=== PATIENT | male | born 1945 | race Caucasian/White ===

== ENCOUNTER 2017-12-12 11:02 | Day surgery (SDC) | payer OTHER ==
[2017-12-11 09:34] VITALS: BMI 37.5
[~2017-12-12 11:02] MED LIST: LACTATED RINGERS 1,000 ML IV SCH; LIDOCAINE 1% 20 ML VIAL (10MG/ML) FOR IV START INTRADERMA PRN; MIDAZOLAM 2 MG/2 ML VIAL IV PRN
[2017-12-12 11:56] VITALS: TEMP 98.4
[2017-12-12] MEDS ORDERED: PROPOFOL 10 MG/ML 20 ML VIAL IV ONE (12:27)
[2017-12-12] MEDS ORDERED: LIDOCAINE 1% INJ 10MG/ML (20 ML MDV) ONE (12:27)
[2017-12-12 13:03] VITALS: RESP 18
--- NOTE | 2017-12-12 13:20 | P.PCN ---
Date of Procedure: 12/12/17 Procedure(s) Performed: Procedure: Colonoscopy and biopsy and polypectomy. Preoperative diagnosis: Hemoccult-positive stools. Postoperative diagnosis: 1. Multiple polyps of various sizes in different areas of the colon, few biopsied and snared. 2. Sigmoid diverticulosis with no evidence of acute diverticulitis or strictures. Preparation: HalfLytely prep. Sedation: Was provided by anesthesia. Brief clinical history: The patient is a 72-year-old male who is scheduled for this evaluation because of finding of Hemoccult positive stools. He denies any overt bleeding or any significant bowel symptoms or change in bowel habits. This would be his first colonoscopy. There is no family history of colon cancer. Procedure: With the patient on his left lateral decubitus position and after informed consent and adequate sedation, the perianal area was inspected and it did not show any fissures or fistulas. There were no masses felt on digital rectal examination. The Olympus CFQ 160L video colonoscope was then inserted in the rectum in the usual fashion and advanced to the cecum. The preparation was less than ideal, however, I was able to observe the most important findings. There was multiple diverticular orifices seen scattered in the sigmoid with no evidence of acute diverticulitis or strictures. In the proximal right colon there was a fleshy flat polypoid area that runs longitudinally and occupies almost half of the circumference of the colon. I obtained multiple biopsies to assess its nature and plan future intervention or follow-up. In the sigmoid, around 45 cm from the anal verge, there was a pedunculated polyp measuring around 2-2.5 cm which I snared and retrieved by suctioning it to the tip of the endoscope and withdrawning the endoscope. There was another flat fleshy polypoid lesion in the distal sigmoid close to the rectosigmoid junction that I decided to obtain biopsies from rather than remove it by piecemeal at this time not knowing its nature and the extent of its attachment to the bowel wall in that area. In addition, there were multiple polyps in the right colon and in the sigmoid, several were small and few medium size which are amenable to polypectomy under more optimal preparation in the future. I retroflexed the endoscope in the rectum before the endoscope was withdrawn. There was no evidence of bleeding in all areas examined. The patient tolerated the procedure well. Plan: I shared with the patient the findings on this exam. Based on the pathology results I will plan next steps regarding the right colon and the distal sigmoid flat, fleshy polypoid areas and the remainder small and medium- sized polyps. I will keep you updated on the progress.
[2017-12-12 13:21] VITALS: BP 167/76; PULSE 65
== END 2017-12-12 13:57 | disposition home or self-care (01) ==
LOC: ORWHC2ENDO 11:02
DX: D12.2 Benign neoplasm of ascending colon (principal); D12.5 Benign neoplasm of sigmoid colon; K57.30 Diverticulosis of large intestine without perforation or abscess without bleeding; J44.9 Chronic obstructive pulmonary disease, unspecified; Z87.891 Personal history of nicotine dependence; Z79.1 Long term (current) use of non-steroidal anti-inflammatories (NSAID); Z79.51 Long term (current) use of inhaled steroids; Z79.899 Other long term (current) drug therapy
CPT/HCPCS: 88305; 45380; 45385; J2001; J2704

== ENCOUNTER 2018-05-21 07:59 | Day surgery (SDC) | payer OTHER ==
[2018-05-16 14:26] VITALS: BMI 36.8
[~2018-05-21 07:59] MED LIST changes: +DEXAMETHASONE SOD PHOSPHATE 10 MG/ML 1 ML VIAL IV ONE; +HYDROmorphone 0.5 MG/0.5 ML SYRINGE IVP PRN; +MIDAZOLAM (PF) 2 MG/2 ML VIAL IV PRN; -MIDAZOLAM 2 MG/2 ML VIAL IV PRN; +MOXIFLOXACIN HCL 0.5% DROPS 3 ML BTL OP ONE; +ONDANSETRON 4 MG/2 ML VIAL IVP ONE; +SCOPOLAMINE 1.5MG/72HR PATCH TRANSDERM ONE; +TETRACAINE 0.5% OPHTH (PF) DROPS 4 ML BTL OP ONE; +TIMOLOL 0.5% OPHTH DROPS 5 ML BTL OP ONE
[2018-05-21] MEDS: PHENYLEPHRINE 2.5% OPHTH DRP 2ML OP NR ×3 (08:15→08:27)
[2018-05-21 08:18] VITALS: RESP 18; TEMP 97.8
[2018-05-21] MEDS: CYCLOPENTOLATE 1% OPHTH SOLN 2 ML BTL OP ONE ×3 (08:18→08:30)
[2018-05-21] MEDS ORDERED: MIDAZOLAM 2 MG/2 ML VIAL ONE (09:01)
[2018-05-21] MEDS ORDERED: fentaNYL (PF) 50 MCG/ML 2 ML AMP ONE (09:01)
[2018-05-21] MEDS ORDERED: LACTATED RINGERS 1,000 ML IV ONE ×2 (09:06→09:07)
[2018-05-21] MEDS ORDERED: BALANCED SALT IRRIG SOLN COMB2 15 ML IRRIG.SOLN IRRIGATION ONE (09:16)
[2018-05-21] MEDS ORDERED: EPINEPHrine (PF) 0.3 ML in BALANCED SALT IRRIG SOLN COMB2 500 ML IRRIGATION ONE (09:17)
[2018-05-21] MEDS ORDERED: DUOVISC KIT (GREEN BOX) INTRAOCULA ONE (09:19)
[2018-05-21] MEDS ORDERED: LIDOCAINE 1% (PF) 10MG/ML VIAL MISCELLANE ONE ×2 (09:19)
[2018-05-21] MEDS ORDERED: EPINEPHrine (PF) 1 MG/ML AMP MISCELLANE ONE (09:19)
--- NOTE | 2018-05-21 09:45 | P.OP ---
Date of Procedure: 05/21/18 Preoperative Diagnosis: previous trauma, NS & CS & dialysis Postoperative Diagnosis: same Procedure(s) Performed: PIOL & CTR & Malyugin ring implantation Implants: PCB00 22.50 & 13.00CTR & 7.0mm Malyugin ring Anesthesia: MAC Surgeon: Nehemias Gamboa Estimated Blood Loss (ml): 0 Pathology: none sent Condition: stable Disposition: no change Indications for Procedure: blurry vision Operative Findings: No complications
[2018-05-21 10:13] VITALS: BP 128/62; PULSE 57
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
== END 2018-05-21 10:29 | disposition home or self-care (01) ==
LOC: OR 07:59
PROVIDERS: ATTEND Ophthalmology
DX: H21.532 Iridodialysis, left eye (principal); H25.13 Age-related nuclear cataract, bilateral; H25.013 Cortical age-related cataract, bilateral; Z86.79 Personal history of other diseases of the circulatory system; H54.40 Blindness, one eye, unspecified eye; J44.9 Chronic obstructive pulmonary disease, unspecified; J43.9 Emphysema, unspecified; M19.90 Unspecified osteoarthritis, unspecified site; F17.210 Nicotine dependence, cigarettes, uncomplicated; Z79.51 Long term (current) use of inhaled steroids; Z79.899 Other long term (current) drug therapy; Z86.73 Personal history of transient ischemic attack (TIA), and cerebral infarction without residual deficits; K21.9 Gastro-esophageal reflux disease without esophagitis; Z79.1 Long term (current) use of non-steroidal anti-inflammatories (NSAID)
CPT/HCPCS: 66982; L8610; C1780; J2250; J0171; J3010; J2001

== ENCOUNTER 2018-06-18 10:46 | Day surgery (SDC) | payer OTHER ==
[2018-06-16 13:21] VITALS: BMI 36.2
[~2018-06-18 10:46] MED LIST changes: -DEXAMETHASONE SOD PHOSPHATE 10 MG/ML 1 ML VIAL IV ONE; -HYDROmorphone 0.5 MG/0.5 ML SYRINGE IVP PRN; -MIDAZOLAM (PF) 2 MG/2 ML VIAL IV PRN; -SCOPOLAMINE 1.5MG/72HR PATCH TRANSDERM ONE
[2018-06-18] MEDS: CYCLOPENTOLATE 1% OPHTH SOLN 2 ML BTL OP ONE ×3 (12:38→12:51)
[2018-06-18] MEDS: PHENYLEPHRINE 2.5% OPHTH DRP 2ML OP NR ×3 (12:42→12:53)
[2018-06-18 12:47] VITALS: RESP 16; TEMP 97.8
[2018-06-18] MEDS ORDERED: MIDAZOLAM 2 MG/2 ML VIAL ONE (13:48)
[2018-06-18] MEDS ORDERED: fentaNYL (PF) 50 MCG/ML 2 ML AMP ONE (13:48)
[2018-06-18] MEDS ORDERED: EPINEPHrine (PF) 0.3 ML in BALANCED SALT IRRIG SOLN COMB2 500 ML IRRIGATION ONE (13:52)
[2018-06-18] MEDS ORDERED: HYALURONATE SODIUM INTRAOCULAR 1 EACH SYRINGE (12MG/ML) INTRAOCULA ONE (13:53)
[2018-06-18] MEDS ORDERED: BALANCED SALT IRRIG SOLN COMB2 15 ML IRRIG.SOLN IRRIGATION ONE (13:53)
[2018-06-18] MEDS ORDERED: LIDOCAINE 1% (PF) 10MG/ML VIAL SQ ONE (13:53)
--- NOTE | 2018-06-18 14:14 | P.OP ---
Date of Procedure: 06/18/18 Preoperative Diagnosis: nS & CS Postoperative Diagnosis: same Procedure(s) Performed: PIOL, OD Implants: PCB00 22.50 Anesthesia: MAC Surgeon: Nehemias Gamboa Estimated Blood Loss (ml): 0 Pathology: none sent Condition: stable Disposition: same day Indications for Procedure: blurry vision Operative Findings: no complications
[2018-06-18 14:35] VITALS: BP 141/61; PULSE 60
--- NOTE | 2018-06-19 07:19 | OP ---
OPERATIVE REPORT DATE OF SURGERY: 06/18/2018 SURGEON: Dr. Nehemias Gamboa PREOPERATIVE DIAGNOSIS: Nuclear sclerosis, cortical sclerosis. POSTOPERATIVE DIAGNOSIS: Nuclear sclerosis, cortical sclerosis. OPERATION: Phacoemulsification of cataract and intraocular lens implant of the right eye. ESTIMATED BLOOD LOSS: Zero. SPECIMEN TAKEN: None. NARRATIVE: After obtaining the appropriate consent, the patient was brought to the Operating Room where the patient was placed under cardiac monitoring and prepped and draped in the usual sterile manner. At the 11 o'clock position a 15 degree super sharp blade was used to create a paracentesis followed by instillation of 1% Xylocaine MPF 50:50 mix with BSS into the anterior chamber. This was followed by Amvisc to stabilize the anterior chamber. At the 9 o'clock position a self-sealing corneal flap incision was created using 2.8 mm emanuel keratome. A cystotome was used to initiate a continuous tear capsulorrhexis which was completed with the Utrata forceps. A Binkhorst cannula was used to hydrodissect the lens nucleus followed by hydrodelineation. Phacoemulsification of the lens was performed utilizing phaco chop in 15.27 seconds at 14% power. The remaining cortical material was removed using the irrigation aspiration mode followed by additional 1% Xylocaine MPF into the anterior chamber followed by viscoelastic to stabilize the capsular bag. An JEET PCB00 22.5 diopters posterior chamber lens was placed into the capsular bag without difficulty. The remaining viscoelastic material was removed from the anterior chamber with the irrigation/aspiration. Balanced salt solution was used to normalize the intraocular pressure. The incision was checked for watertight integrity. The patient then received two drops of 0.5% timolol followed by two drops Vigamox, was lightly patched and shielded in the usual manner. There were no complications from the procedure. The patient tolerated the procedure well and was returned to recovery in good condition. MMODL / IJN: [id number] /
== END 2018-06-18 14:55 | disposition home or self-care (01) ==
LOC: OR 10:46
PROVIDERS: ATTEND Ophthalmology
DX: H25.11 Age-related nuclear cataract, right eye (principal); J44.9 Chronic obstructive pulmonary disease, unspecified; Z79.899 Other long term (current) drug therapy
CPT/HCPCS: 66984; C1780; J2250; J0171; J3010; J2001

== ENCOUNTER 2018-09-15 07:09 | Day surgery (SDC) | payer OTHER ==
[2018-09-12 09:06] VITALS: BMI 37.5
[~2018-09-15 07:09] MED LIST changes: +MIDAZOLAM 2 MG/2 ML VIAL IV PRN; -MOXIFLOXACIN HCL 0.5% DROPS 3 ML BTL OP ONE; -ONDANSETRON 4 MG/2 ML VIAL IVP ONE; -TETRACAINE 0.5% OPHTH (PF) DROPS 4 ML BTL OP ONE; -TIMOLOL 0.5% OPHTH DROPS 5 ML BTL OP ONE
[2018-09-15 07:29] VITALS: TEMP 97
[2018-09-15] MEDS ORDERED: PROPOFOL 10 MG/ML 20 ML VIAL IV ONE (08:54)
[2018-09-15 09:34] VITALS: RESP 18
[2018-09-15 09:51] VITALS: BP 140/75; PULSE 68
--- NOTE | 2018-09-15 15:21 | P.PCN ---
Date of Procedure: 09/15/18 Procedure(s) Performed: Procedure: Colonoscopy and polypectomy. Preoperative diagnosis: History of polyps with high-grade dysplasia. Postoperative diagnosis: 1. Large polyp at the rectosigmoid junction snared and retrieved. 2. Sigmoid diverticulosis with no evidence of acute diverticulitis or strictures. 3. Multiple small polyps of no clinical significance not addressed because of the poor preparation despite 2 day prep. 4. Right colon polypoid area previously described remained unchanged. Preparation: Peg 3350. Brief clinical history: The patient is a 72-year-old male who had a colonoscopy in November 2017 for Hemoccult positive stools. He had multiple polyps of various sizes in various areas removed as well as sigmoid diverticulosis. The pathology on the rectosigmoid large polyp biopsy showed tubulovillous adenoma with high-grade dysplasia. And there was a right colon polypoid area that involved a good part of the the circumference of the lumen that showed tubulovillous adenoma with dysplasia. His preparation was less than ideal at the time of his colonoscopy and he was recommended repeat exam after a 2 day preparation with the intent to address the right colon area and the large polyp at the rectosigmoid area. Procedure: With the patient on his left lateral decubitus position and after informed consent and adequate sedation, the perianal area was inspected and it did not show any fissures or fistulas. There were no masses felt on digital rectal examination. The Olympus CFH 190L video colonoscope was then inserted in the rectum in the usual fashion and advanced to the cecum. Unfortunately, the preparation was not ideal today as well but I was able to address the large polyp at the rectosigmoid junction. This was snared and removed in 2 pieces and sent to pathology. It measures 4 or up to 5 cm in greatest dimension. There were other small polyps in various areas on the left side and on the right side the previously described polypoid area appeared unchanged blending with the surrounding tissue making it not accessible to safe polypectomy. The patient tolerated the procedure well. Plan: I summarized in detail the findings to the patient and his . Depending on the pathology results from the large polyp removed today, and if the patient needs segmental resection at the rectosigmoid area, I would recommend concurrently that he has resection on the right side. Otherwise, we will consider that in the future based on his course and repeat biopsies. I will keep you updated on his progress.
== END 2018-09-15 09:54 | disposition home or self-care (01) ==
LOC: ORWHC2ENDO 07:09
DX: D12.7 Benign neoplasm of rectosigmoid junction (principal); K57.30 Diverticulosis of large intestine without perforation or abscess without bleeding; Z86.010 Personal history of colon polyps; J44.9 Chronic obstructive pulmonary disease, unspecified; I69.398 Other sequelae of cerebral infarction; H53.8 Other visual disturbances; Z98.42 Cataract extraction status, left eye; Z98.41 Cataract extraction status, right eye; Z87.891 Personal history of nicotine dependence; Z79.1 Long term (current) use of non-steroidal anti-inflammatories (NSAID); Z79.899 Other long term (current) drug therapy
CPT/HCPCS: 88305; 45385; J2704

== ENCOUNTER → 2019-02-06 | Outpatient (CLI) | payer OTHER ==
--- NOTE | 2019-02-06 13:18 | CT ---
EXAMINATION TYPE: CT pelvis wo con DATE OF EXAM: 02/06/2019 COMPARISON: None HISTORY: Prostate CA CT DLP: 1821.9 mGycm Automated exposure control for dose reduction was used. Unenhanced CT of the pelvis was performed. GI contrast was utilized. FINDINGS: The prostate gland does not appear to be enlarged. The prostate fat planes are grossly intact. Seminal vesicles appear unremarkable. I do not see eviden ce for pelvic or inguinal adenopathy. Atheromatous changes are noted of the visualized arterial struc tures within the [id number]. Gastrointestinal tract is of normal caliber. Degenerative changes lum bar spine. IMPRESSION: NO SIGNIFICANT ABNORMALITY PELVIC CT.
--- NOTE | 2019-02-06 15:28 | NM ---
EXAMINATION TYPE: NM bone scan whole body DATE OF EXAM: 02/06/2019 COMPARISON: NONE HISTORY: Prostate cancer Delayed whole-body scanning was performed following the injection of 25.6 mCi Tc 99m MDP. Images acq uired 3.5 hours post injection. FINDINGS: Abnormal uptake involving the sternoclavicular joints and shoulders likely post arthritic. Mild intensity abnormal uptake throughout the cervical, thoracic and lower lumbar spine likely degene rative. Mild uptake involving the hip joint greater on the right likely post arthritic. Abnormal uptake invol ving the right knee, and bilateral feet likely post arthritic. IMPRESSION: 1. No diagnostic evidence of metastases. Abnormal uptake throughout the vertebral column appears to b e of low intensity and therefore most likely degenerative. 3. Intense abnormal uptake involving the shoulders and sternoclavicular joints likely post arthritic. Correlate with x-ray as clinically warranted.
== END | disposition home or self-care (01) ==
LOC: RADNMMAIN 10:49
PROVIDERS: ATTEND Urology
DX: C61 Malignant neoplasm of prostate (principal); R93.7 Abnormal findings on diagnostic imaging of other parts of musculoskeletal system
CPT/HCPCS: 72192; 78306; A9503

== ENCOUNTER 2019-05-19 16:06 | Inpatient (IN) | payer OTHER ==
[2019-05-21 12:07] VITALS: PULSE 80
[2019-05-21 13:40] VITALS: BP 152/73; RESP 16; TEMP 98
== END 2019-05-21 14:40 | disposition home or self-care (01) | DRG 190 ==
LOC: EC 16:06 → 3SCARD 18:13
PROVIDERS: ADMIT Hospitalist; ATTEND Hospitalist
DX: J44.1 Chronic obstructive pulmonary disease with (acute) exacerbation (principal); I50.33 Acute on chronic diastolic (congestive) heart failure; I48.4 Atypical atrial flutter; I48.91 Unspecified atrial fibrillation; I07.1 Rheumatic tricuspid insufficiency; H54.61 Unqualified visual loss, right eye, normal vision left eye; G47.30 Sleep apnea, unspecified; F10.10 Alcohol abuse, uncomplicated; E66.9 Obesity, unspecified; I27.20 Pulmonary hypertension, unspecified; Z79.51 Long term (current) use of inhaled steroids; Z86.73 Personal history of transient ischemic attack (TIA), and cerebral infarction without residual deficits; Z87.891 Personal history of nicotine dependence
CPT/HCPCS: 36415; 71046; 80053; 80061; 83735; 83880; 84443; 84484; 85025; 85610; 85730; 87502; 93306; 94640; 94760; 96365; 96366; 96375; 96376; 99285

== ENCOUNTER 2019-07-28 05:40 | Inpatient (IN) | payer OTHER, MEDICARE ==
[2019-07-28] MEDS ORDERED: SODIUM CHLORIDE 0.9% 1,000 ML IV STA (05:58)
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
[2019-07-28] MEDS ORDERED: ASPIRIN 81 MG PO STA (06:05)
[2019-07-28 06:21] LABS: Basophils % (A) 1 %; Eosinophils # (A) 0.3 k/uL (0-0.7); Eosinophils % (A) 4 %; HCT 41.7 % (39.0-53.0); HGB 13.6 gm/dL (13.0-17.5); Lymphocytes # (A) 1.8 k/uL (1.0-4.8); Lymphocytes % (A) 29 %; MCH 31.3 pg (25.0-35.0); MCHC 32.5 g/dL (31.0-37.0); MCV 96.4 fL (80.0-100.0); Mean Platelet Volume 9.4; Monocytes # (A) 0.4 k/uL (0-1.0); Monocytes % (A) 6 %; Neutrophils # (A) 3.7 k/uL (1.3-7.7); Neutrophils % (A) 58 %; Platelet Count 195 k/uL (150-450); RBC 4.33 m/uL (4.30-5.90); RDW 13.2 % (11.5-15.5); WBC 6.3 k/uL (3.8-10.6)
[2019-07-28 06:33] LABS: Albumin 3.9 g/dL (3.5-5.0); Calcium 8.8 mg/dL (8.4-10.2); Phosphorus 4.1 mg/dL (2.5-4.5); Potassium 4.1 mmol/L (3.5-5.1); Total Bilirubin 0.6 mg/dL (0.2-1.3); Total Protein 6.7 g/dL (6.3-8.2)
[2019-07-28 06:36] LABS: Prothrombin Time 10.1 sec (9.0-12.0)
[2019-07-28 07:13] VITALS: RESP 14
[2019-07-28] MEDS ORDERED: ALBUTEROL NEBULIZED 2.5 MG/3 ML INHALATION PRN (10:04)
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
[2019-07-28 11:19] VITALS: BP 153/74; TEMP 98.1
--- NOTE | 2019-07-28 11:36 | ECHOF ---
Referral Reason:assess lvf MEASUREMENTS -------- HEIGHT: 188.0 cm WEIGHT: 133.8 kg BP: 152/80 RVIDd: 3.6 cm (< 3.3) IVSd: 1.3 cm (0.6 - 1.1) LVIDd: 5.6 cm (3.9 - 5.3) LVPWd: 1.3 cm (0.6 - 1.1) IVSs: 1.5 cm LVIDs: 4.3 cm LVPWs: 1.8 cm LA Diam: 4.4 cm (2.7 - 3.8) LAESV Index (A-L): 38.97 ml/m Ao Diam: 3.4 cm (2.0 - 3.7) AV Cusp: 2.3 cm (1.5 - 2.6) MV EXCURSION: 15.228 mm (> 18.000) MV EF SLOPE: 38 mm/s (70 - 150) EPSS: 0.9 cm RAP: 5.00 mmHg RVSP: 41.65 mmHg FINDINGS -------- The rhythm appears to be atrial flutter. This was a technically adequate study. The left ventricular size is normal. There is mild concentric left ventricular hypertrophy. Overa ll left ventricular systolic function is mildly impaired with, an EF between 45 - 50 %. The right ventricle is mildly enlarged. LA is moderately dilated 34-39 ml/m2 The right atrium is normal in size. Aneurysmal Interatrial septum. The aortic valve is trileaflet and appears structurally normal. Mild mitral regurgitation is present. Mild tricuspid regurgitation present. There is mild pulmonary hypertension. The right ventricular systolic pressure, as measured by Doppler, is 41.65mmHg. Trace/mild (physiologic) pulmonic regurgitation. The aortic root size is normal. Normal inferior vena cava with normal inspiratory collapse consistent with estimated right atrial pre ssure of 5 mmHg. The inferior vena cava is mildly dilated. There is no pericardial effusion. CONCLUSIONS -------- 1. The rhythm appears to be atrial flutter. 2. This was a technically adequate study. 3. The left ventricular size is normal. 4. There is mild concentric left ventricular hypertrophy. 5. Overall left ventricular systolic function is mildly impaired with, an EF between 45 - 50 %. 6. The right ventricle is mildly enlarged. 7. LA is moderately dilated 34-39 ml/m2 8. The right atrium is normal in size. 9. Aneurysmal Interatrial septum. 10. The aortic valve is trileaflet and appears structurally normal. 11. Mild mitral regurgitation is present. 12. Mild tricuspid regurgitation present. 13. There is mild pulmonary hypertension. 14. The right ventricular systolic pressure, as measured by Doppler, is 41.65mmHg. 15. Trace/mild (physiologic) pulmonic regurgitation. 16. The aortic root size is normal. 17. Normal inferior vena cava with normal inspiratory collapse consistent with estimated right atrial pressure of 5 mmHg. 18. The inferior vena cava is mildly dilated. 19. There is no pericardial effusion. SHOT LIGHTER: Lilibeth Elam RDCS
--- NOTE | 2019-07-28 12:22 | P.DS ---
Providers Date of admission: 07/28/19 06:05 Attending physician: Saleem Cantu Consults: 07/28/19 06:05 Consult Physician Urgent Consulting Provider: Chary Mistry Consult Reason/Comments: macie Do you want consulting provider notified?: Yes Primary care physician: [facility] Hospital Course: please of her dementia for further details Patient Condition at Discharge: Serious Plan - Discharge Summary Discharge Rx Participant: No New Discharge Prescriptions: Continue Tiotropium 18 Mcg/Puff [Spiriva] 1 cap INHALATION RT-DAILY Budesonide/Formoterol Fumarate [Symbicort 80-4.5 Mcg Inhaler] 2 puff INHALATION RT-BID Albuterol Nebulized [Ventolin Nebulized] 2.5 mg INHALATION RT-Q4H PRN PRN Reason: Shortness Of Breath Aspirin 81 mg PO DAILY 30 Days #30 chew Apixaban [Eliquis] 5 mg PO BID 30 Days #60 tab Bicalutamide [Casodex] 50 mg PO DAILY Albuterol Inhaler [Ventolin Hfa Inhaler] 2 puff INHALATION RT-QID Discontinued Furosemide [Lasix] 20 mg PO DAILY Discharge Medication List Tiotropium 18 Mcg/Puff [Spiriva] 1 cap INHALATION RT-DAILY 12/11/17 [History] Albuterol Nebulized [Ventolin Nebulized] 2.5 mg INHALATION RT-Q4H PRN 05/19/19 [History] Budesonide/Formoterol Fumarate [Symbicort 80-4.5 Mcg Inhaler] 2 puff INHALATION RT-BID 05/19/19 [History] Apixaban [Eliquis] 5 mg PO BID 30 Days #60 tab 05/21/19 [Rx] Aspirin 81 mg PO DAILY 30 Days #30 chew 05/21/19 [Rx] Albuterol Inhaler [Ventolin Hfa Inhaler] 2 puff INHALATION RT-QID 07/28/19 [History] Bicalutamide [Casodex] 50 mg PO DAILY 07/28/19 [History] Follow up Appointment(s)/Referral(s): Mtat Davis MD [STAFF PHYSICIAN] - 08/10/19 9:00 am (Device check) Yogesh Weber MD [STAFF PHYSICIAN] - 4 Weeks [facility] [Primary Care Provider] - 1 Week Patient Instructions/Handouts: Pacemaker (GEN) Activity/Diet/Wound Care/Special Instructions: pacemaker insertion on Saturday08/03/19 nothing by mouth after midnight 08/03/19 hibicleanse shower for 5 days prior to pacemaker do not take morning dose of Eliquis on Saturday08/03/19 Discharge Disposition: HOME SELF-CARE
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
[2019-07-28] MEDS: ALBUTEROL HFA INHALER INHALATION SCH ×2 (12:35→12:36)
[2019-07-28 12:48] VITALS: PULSE 50
[2019-07-28] MEDS ORDERED: SYMBICORT 80-4.5 MCG INHALER INHALATION SCH (20:00)
[2019-07-29] MEDS ORDERED: TIOTROPIUM 18 MCG/PUFF INHALER INHALATION SCH (08:00)
[2019-07-29] MEDS ORDERED: BICALUTAMIDE 50 MG TAB PO SCH (09:00)
[2019-07-29] MEDS ORDERED: ASPIRIN 325 MG TAB PO SCH (09:00)
== END 2019-07-28 13:02 | disposition home or self-care (01) | DRG 309 ==
LOC: EC 05:40 → 3SCARD 06:05
PROVIDERS: ADMIT Hospitalist; ATTEND Hospitalist
DX: I49.5 Sick sinus syndrome (principal); I48.19 Other persistent atrial fibrillation; I48.92 Unspecified atrial flutter; F17.200 Nicotine dependence, unspecified, uncomplicated; I69.398 Other sequelae of cerebral infarction; H53.8 Other visual disturbances; I08.1 Rheumatic disorders of both mitral and tricuspid valves; I27.20 Pulmonary hypertension, unspecified; J44.9 Chronic obstructive pulmonary disease, unspecified; Z79.01 Long term (current) use of anticoagulants; Z79.51 Long term (current) use of inhaled steroids; Z79.82 Long term (current) use of aspirin; Z79.899 Other long term (current) drug therapy; Z98.42 Cataract extraction status, left eye; Z98.41 Cataract extraction status, right eye; Z71.6 Tobacco abuse counseling; F10.10 Alcohol abuse, uncomplicated; Z71.41 Alcohol abuse counseling and surveillance of alcoholic; Z11.59 Encounter for screening for other viral diseases
CPT/HCPCS: 80053; 83735; 84100; 84443; 84484; 85025; 85610; 85730; 87635; 93005; 93306; 94640; 96360; 99291

== ENCOUNTER → 2019-08-03 | Day surgery (SDC) | payer MEDICARE, OTHER ==
[2019-07-31 09:12] VITALS: BMI 37.8
[~2019-08-03] MED LIST changes: +ACETAMINOPHEN IV (For NPO) 1,000 MG in EMPTY BAG 1 BAG IVPB ONE; +ACETAMINOPHEN TAB 325 MG TAB PO PRN; +IOPAMIDOL-370 50ML BTL INJ ONE; -LIDOCAINE 1% 20 ML VIAL (10MG/ML) FOR IV START INTRADERMA PRN; +LIDOCAINE 1% INJ 10MG/ML (20 ML MDV) ONE; +LIDOCAINE 1% INJ 10MG/ML (20 ML MDV) SQ ONE; -MIDAZOLAM 2 MG/2 ML VIAL IV PRN; +MIDAZOLAM 2 MG/2 ML VIAL ONE; +SODIUM CHLORIDE 0.9% 1,000 ML IV SCH; +ceFAZolin 1,000 MG in SODIUM CHLORIDE 0.9% IRRIGATIO 250 ML IRRIGATION ONE; +fentaNYL (PF) 50 MCG/ML 2 ML AMP ONE
[2019-08-03 11:36] VITALS: RESP 18; TEMP 98.1
--- NOTE | 2019-08-03 14:57 | P.PCN ---
Preoperative Diagnosis: Left upper extremity venogram 15 mL of IV dye injected in the left arm and a patent left subclavian and left axillary vein noted Plan Proceed with biventricular pacemaker implantation
--- NOTE | 2019-08-03 16:00 | PCN ---
PROCEDURE NOTE Mr. Mendez Fragoso is a 73-year-old male patient with paroxysmal atrial fibrillation with severe bradycardia and pauses, beta blockers were stopped. Nevertheless, heart rate remained in the 40s and he was brought in for biventricular pacing. Since the standard pacing, he would pace 100% in the right ventricle. Patient is brought to the EP lab in a fasting state. Written informed consent was obtained prior to the procedure. The skin left shoulder area was prepped and draped as per protocol; 1% lidocaine was used for local anesthesia. Antibiotics were administered. An incision was made over the left pectoral area and carried down to the level of the pectoralis muscle. A subfascial pocket was made. Hemostasis was assured, the left axillary vein was accessed at 3 separate points under fluoroscopy and via appropriately-sized introducer sheaths 3 leads were positioned in the right heart. The atrial lead was a screw-in lead, Medtronic model #5076, 52 cm in length and serial number [id number] was screwed in the right atrial appendage. Patient was in atrial fibrillation, atrial fibrillation rate of a 0.1 mV, pacing impedance 589 ohms, 10 V test negative. The right ventricular lead was a tined lead, was positioned in the RV apex. This is a 58 cm Medtronic model #4074, 58 cm in length and serial number [id number]. This was positioned in the RV apex. Pacing threshold was 0.25 V at 0.4 milliseconds, pacing impedance of 817 ohms. R-waves 5.6 mV. The His bundle lead (biventricular, LV lead) model #330, 69 cm length and serial number [id number] was positioned in the His bundle area. This was a difficult part of the procedure and the patient had a very enlarged right ventricle and severe pulmonary hypertension with tricuspid regurgitation. The lead position was difficult on account of instability of the contact. However, after multiple efforts and maneuvering of the sheath and the leads, he was able to get a very good His bundle signal with current of injury on it. The lead was then screwed in and we initially got selective capture followed by nonselective capture. The sheath was then removed and the lead thresholds are excellent. The threshold for loss of nonselective capture was 3 V at 1 millisecond and loss of selective capture was at 1 V at 1 millisecond. All 3 sheaths were removed. The leads were secured to the underlying pectoralis muscle using 2 nonabsorbable sutures. Pocket was irrigated with antibiotic solution. Leads were connected to the generator. This leads were then connected to the generator (model #[employer] [id number], serial #[id number], Zee CRTP, leads and the generator were placed in subfascial pocket and the wound was closed in 3 layers and dressed per protocol. Patient tolerated the procedure well without any acute complication, device is programmed to DDDR mode 60-130 with LV RV offset of 80 milliseconds to promote His bundle pacing and avoid RV pacing. PLAN: Resume beta blockers and continue anticoagulation. MMODL / IJN: [id number] /
--- NOTE | 2019-08-03 17:09 | XR ---
EXAMINATION TYPE: XR chest 1V portable DATE OF EXAM: 08/03/2019 COMPARISON: Chest x-ray May 19, 2019. HISTORY: Shortness of breath for one month worse over last 2 days. TECHNIQUE: Single AP portable frontal upright view of the chest is obtained. FINDINGS: Overlying EKG leads are seen. There is chronic parenchymal change without suspicious new f ocal air space opacity, pleural effusion, or pneumothorax seen. Slightly diminished inspiration. The cardiac silhouette size remains enlarged with dual lead pacemaker now present. The osseous structur es are intact. IMPRESSION: Chronic changes and cardiomegaly without suspicious new acute pulmonary process.
[2019-08-03 17:43] VITALS: PULSE 59
[2019-08-03 18:09] VITALS: BP 148/74
== END | disposition home or self-care (01) ==
LOC: CATHEP 10:52
PROVIDERS: ATTEND Internal Medicine Clinical Cardiac Electrophysiology
DX: I48.0 Paroxysmal atrial fibrillation (principal); R00.1 Bradycardia, unspecified; I48.3 Typical atrial flutter; Z79.01 Long term (current) use of anticoagulants; I07.1 Rheumatic tricuspid insufficiency; I10 Essential (primary) hypertension; I27.20 Pulmonary hypertension, unspecified; I69.398 Other sequelae of cerebral infarction; H53.8 Other visual disturbances; R93.1 Abnormal findings on diagnostic imaging of heart and coronary circulation; J44.9 Chronic obstructive pulmonary disease, unspecified; Z87.891 Personal history of nicotine dependence; Z97.2 Presence of dental prosthetic device (complete) (partial); Z11.59 Encounter for screening for other viral diseases; Z79.82 Long term (current) use of aspirin; Z79.51 Long term (current) use of inhaled steroids; Z79.899 Other long term (current) drug therapy
CPT/HCPCS: 33225; 33208; 87635; 71045; C1769 ×3; C1892; C1898; C2621; J2250; J0690 ×2; J2001; J3010; Q9967

== ENCOUNTER 2019-10-16 20:00 | Observation (INO) | payer MEDICARE ==
[~2019-10-16 20:00] MED LIST changes: -ACETAMINOPHEN IV (For NPO) 1,000 MG in EMPTY BAG 1 BAG IVPB ONE; -ACETAMINOPHEN TAB 325 MG TAB PO PRN; +ATROPINE SULFATE 0.1 MG/ML 10ML SYRINGE ONE; -IOPAMIDOL-370 50ML BTL INJ ONE; -LACTATED RINGERS 1,000 ML IV SCH; -LIDOCAINE 1% INJ 10MG/ML (20 ML MDV) ONE; -LIDOCAINE 1% INJ 10MG/ML (20 ML MDV) SQ ONE; -MIDAZOLAM 2 MG/2 ML VIAL ONE; -SODIUM CHLORIDE 0.9% 1,000 ML IV SCH; -ceFAZolin 1,000 MG in SODIUM CHLORIDE 0.9% IRRIGATIO 250 ML IRRIGATION ONE; -fentaNYL (PF) 50 MCG/ML 2 ML AMP ONE
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
--- NOTE | 2019-10-16 20:48 | XR ---
EXAMINATION TYPE: XR chest 2V DATE OF EXAM: 10/16/2019 COMPARISON: 08/03/2019 HISTORY: Chest pain TECHNIQUE: 2 views FINDINGS: There is no heart failure nor confluent pneumonic infiltrate. Costophrenic angles are clear . There is left axillary pacemaker. Heart size is normal. There are no hilar masses. Mediastinum is n ormal. Bony thorax appears intact. IMPRESSION: No active cardiopulmonary disease. No adverse change.
[2019-10-16 20:49] LABS: Basophils % (A) 0 %; Eosinophils # (A) 0.1 k/uL (0-0.7); Eosinophils % (A) 1 %; HCT 40.8 % (39.0-53.0); Lymphocytes # (A) 1.2 k/uL (1.0-4.8); Lymphocytes % (A) 12 %; MCH 32.5 pg (25.0-35.0); MCHC 34.4 g/dL (31.0-37.0); MCV 94.4 fL (80.0-100.0); Mean Platelet Volume 8.2; Monocytes # (A) 0.8 k/uL (0-1.0); Monocytes % (A) 8 %; Neutrophils # (A) 7.6 k/uL (1.3-7.7); Neutrophils % (A) 78 %; Platelet Count 190 k/uL (150-450); RBC 4.32 m/uL (4.30-5.90); RDW 15.4 % (11.5-15.5); WBC 9.7 k/uL (3.8-10.6)
[2019-10-16 20:54] LABS: ALT 16 U/L (4-49); AST 21 U/L (17-59); African American GFR (CKD) >90 (>60 ml/min/1.73 sqM); Alkaline Phosphatase 59 U/L (38-126); Anion Gap 9 mmol/L; Blood Urea Nitrogen 18 mg/dL (9-20); Calcium 8.8 mg/dL (8.4-10.2); Carbon Dioxide 24 mmol/L (22-30); Chloride 100 mmol/L (98-107); Glucose 139 mg/dL (74-99); Magnesium 1.9 mg/dL (1.6-2.3); Non-African American GFR(CKD) 84 (>60 ml/min/1.73 sqM); Potassium 4.5 mmol/L (3.5-5.1); Sodium 133 mmol/L (137-145); Total Bilirubin 0.9 mg/dL (0.2-1.3); Total Protein 6.4 g/dL (6.3-8.2)
[2019-10-16 20:56] LABS: Partial Thromboplastin Time 25.3 sec (22.0-30.0); Prothrombin Time 10.6 sec (9.0-12.0)
[2019-10-16] MEDS ORDERED: IPRATROPIUM-ALBUTEROL 3 ML NEB INHALATION STA (21:30)
[2019-10-16] MEDS ORDERED: ALBUTEROL NEBULIZED 2.5 MG/3 ML INHALATION STA (21:30)
[2019-10-16] MEDS ORDERED: DEXAMETHASONE SOD PHOSPHATE 10 MG/ML 1 ML VIAL IV STA (21:30)
[2019-10-16] MEDS ORDERED: IPRATROPIUM-ALBUTEROL 3 ML NEB INHALATION PRN (21:40)
[2019-10-16] MEDS ORDERED: NALOXONE 0.4 MG/ML 1 ML VIAL IV PRN (21:40)
[2019-10-16] MEDS ORDERED: ACETAMINOPHEN TAB 325 MG TAB PO PRN (21:40)
[2019-10-17] MEDS: METOPROLOL SUCCINATE (ER) 50 MG TAB.ER.24H PO SCH (09:10)
[2019-10-17] MEDS: predniSONE 20 MG TAB PO SCH (09:10)
[2019-10-17] MEDS: ASPIRIN 81 MG PO SCH (09:11)
[2019-10-17] MEDS: BICALUTAMIDE 50 MG TAB PO SCH (09:11)
[2019-10-17] MEDS: APIXABAN 5 MG TAB PO SCH ×2 (09:11→20:01)
[2019-10-17] MEDS: IPRATROPIUM-ALBUTEROL 3 ML NEB INHALATION SCH ×4 (09:45→19:41)
[2019-10-17] MEDS: LOSARTAN 50 MG TAB PO SCH (10:47)
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
[2019-10-18] MEDS: IPRATROPIUM-ALBUTEROL 3 ML NEB INHALATION SCH ×4 (06:27→20:23)
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
[2019-10-18] MEDS: predniSONE 20 MG TAB PO SCH (09:10)
[2019-10-18] MEDS: METOPROLOL SUCCINATE (ER) 50 MG TAB.ER.24H PO SCH (09:10)
[2019-10-18] MEDS: ASPIRIN 81 MG PO SCH (09:10)
[2019-10-18] MEDS: APIXABAN 5 MG TAB PO SCH ×2 (09:10→20:36)
[2019-10-18] MEDS: LOSARTAN 50 MG TAB PO SCH (09:11)
[2019-10-18] MEDS: BICALUTAMIDE 50 MG TAB PO SCH (09:11)
--- NOTE | 2019-10-18 10:31 | P.PN ---
Subjective Progress Note Date: 10/18/19 The patient is a 73-year-old male with past medical history of paroxysmal atrial fibrillation, sick sinus syndrome status post permanent pacemaker, COPD, and prior TIA, who follows with Dr. Sutherland in the office. The patient recently presented to the emergency room with worsening shortness of breath and chest discomfort. He reports this as a heaviness like sensation. EKG shows His bundle pacing. Troponin levels less than 0.012, 0.021, and 0.016 respectively. Chest x-ray shows no active cardiopulmonary disease. 10/17/2019 The patient states his chest discomfort has resolved. He currently does not have any shortness of breath sitting on the side of his bed. Vitals: BP 150/82, pulse 67, respiratory rate 14, afebrile, 98% on room air. 10/18/2019 The patient was ambulating around the room at the time of my exam. No shortness of breath or chest discomfort. He states he is feeling well. He denies any palpitations, dizziness, or lightheadedness. Vitals: BP 127/76, pulse 67, respiratory rate 18, SpO2 96%, afebrile GENERAL: Well-appearing, well-nourished and in no acute distress. NECK: Supple without JVD or thyromegaly. LUNGS: Breath sounds clear to auscultation bilaterally. Respiration equal and unlabored. No wheezes, rales or rhonchi. HEART: Regular rate and rhythm without murmurs, rubs or gallops. S1 and S2 heard. EXTREMITIES: Normal range of motion. Mild left lower extremity edema. No clubbing or cyanosis. Peripheral pulses intact and strong. TELEMETRY: Paced rhythm. No tachyarrhythmias overnight. FINAL ASSESSMENT AND PLAN: #1 chest discomfort, atypical however CAD has not been ruled out #2 shortness of breath, chronic #3 hypertension, uncontrolled #4 dyslipidemia, previous LDL 82 in April 2019 #5 paroxysmal atrial fibrillation, currently paced #6 sick sinus syndrome, status post permanent pacemaker PLAN: Stress echocardiogram planned for tomorrow morning. Continue losartan for blood pressure management. ASCVD risk score is 18.7%. Initiate statin therapy for primary prevention. Start atorvastatin 10 mg. Patient may be discharged for outpatient followup if stress test has no signs of ischemia. Objective - Vital Signs Vital signs: Vital Signs Temp 97.6 F 10/18/19 03:00 Pulse 77 10/18/19 03:00 Resp 20 10/18/19 03:00 BP 145/81 10/18/19 03:00 Pulse Ox 96 10/18/19 03:00 Intake & Output 10/17/19 10/18/19 10/18/19 18:59 06:59 18:59 Intake Total 240 1020 Balance 240 1020 Intake: Oral 240 1020 Other: Voiding Method Toilet Toilet # Voids 1 2 - Labs CBC & Chem 7: 10/16/19 20:28 10/16/19 20:28
[2019-10-18 12:03] VITALS: RESP 18
--- NOTE | 2019-10-18 16:41 | P.PN ---
Subjective Progress Note Date: 10/18/19 Principal diagnosis: Chest pain Paroxysmal atrial fibrillation Uncontrolled hypertension 73-year-old male with history of paroxysmal atrial fibrillation, sick sinus syndrome, patient is status post pacemaker placement, COPD and TIA, presenting to ED with dyspnea, chest pressure and heaviness. EKG shows His bundle pacing. Troponin levels less than 0.012, 0.021, and 0.016 respectively. Chest x-ray shows no active cardiopulmonary disease. 10/18/2019 Patient is seen and evaluated ambulating in the room; denies any chest shortness of breath at this time Patient is scheduled for stress echocardiogram in the morning; patient was started on losartan for uncontrolled hypertension which she's tolerating well; cardiology recommending to start on Lipitor 10 mg daily Further recommendations pending stress test results Objective - Vital Signs Vital signs: Vital Signs Temp 97.6 F 10/18/19 03:00 Pulse 77 10/18/19 03:00 Resp 20 10/18/19 03:00 BP 145/81 10/18/19 03:00 Pulse Ox 96 10/18/19 03:00 Intake & Output 10/17/19 10/18/19 10/18/19 18:59 06:59 18:59 Intake Total 240 1020 Balance 240 1020 Intake: Oral 240 1020 Other: Voiding Method Toilet Toilet # Voids 1 2 - Exam PHYSICAL EXAMINATION: GENERAL: The patient is alert and oriented x3, not in any acute distress. Well developed, well nourished. HEENT: Pupils are round and equally reacting to light. EOMI. No scleral icterus. No conjunctival pallor. Normocephalic, atraumatic. No pharyngeal erythema. No thyromegaly. CARDIOVASCULAR: S1 and S2 present. No murmurs, rubs, or gallops. PULMONARY: Chest is clear to auscultation, no wheezing or crackles. ABDOMEN: Soft, nontender, nondistended, normoactive bowel sounds. No palpable organomegaly. MUSCULOSKELETAL: No joint swelling or deformity. EXTREMITIES: No cyanosis, clubbing, or pedal edema. NEUROLOGICAL: Gross neurological examination did not reveal any focal deficits. SKIN: No rashes. - Labs CBC & Chem 7: 10/16/19 20:28 10/16/19 20:28 Assessment and Plan Assessment: 1. Atypical chest pain; rule out acute coronary syndrome; patient started on a spirin and remains on beta mahogany therapy; patient is scheduled for dobutamine stress echo 2. Uncontrolled hypertension; cardiology is following and recommending to add losartan 50 mg daily for improved blood pressure control 3. Hyperlipidemia; currently not on statin therapy 4. Persistent atrial fibrillation; paced rhythm; rate controlled with metoprolol 50 mg daily; anticoagulation therapy with Elquis 5 mg twice a day 5. Sick sinus syndrome; status post permanent pacemaker 6. COPD/asthma; not in exacerbation; continue inhaler therapy in form of Ventolin inhaler to be used when necessary, Symbicort 2 puffs twice a day and Spiriva 18 MCG inhalation daily DVT prophylaxis; systemic anticoagulation CODE STATUS; full code
[2019-10-18] MEDS ORDERED: ATORVASTATIN 10 MG TAB PO SCH (21:00)
[2019-10-19 03:09] VITALS: TEMP 97.6
[2019-10-19] MEDS ORDERED: DOBUTamine DRIP for NUC MED 500 MG in DEXTROSE/WATER 1 250ML.BAG IV ONE (06:00)
[2019-10-19 06:15] LABS: Basophils % (A) 0 %; Eosinophils % (A) 0 %; HCT 40.5 % (39.0-53.0); HGB 13.2 gm/dL (13.0-17.5); Lymphocytes # (A) 1.3 k/uL (1.0-4.8); Lymphocytes % (A) 16 %; MCH 31.5 pg (25.0-35.0); MCHC 32.7 g/dL (31.0-37.0); MCV 96.1 fL (80.0-100.0); Mean Platelet Volume 7.8; Monocytes # (A) 0.5 k/uL (0-1.0); Monocytes % (A) 7 %; Neutrophils # (A) 6.2 k/uL (1.3-7.7); Neutrophils % (A) 76 %; Platelet Count 150 k/uL (150-450); RBC 4.21 m/uL (4.30-5.90); RDW 15.5 % (11.5-15.5); WBC 8.2 k/uL (3.8-10.6)
[2019-10-19 06:24] LABS: African American GFR (CKD) >90 (>60 ml/min/1.73 sqM); Anion Gap 3 mmol/L; Blood Urea Nitrogen 30 mg/dL (9-20); Calcium 8.8 mg/dL (8.4-10.2); Carbon Dioxide 29 mmol/L (22-30); Chloride 103 mmol/L (98-107); Glucose 107 mg/dL (74-99); Non-African American GFR(CKD) 81 (>60 ml/min/1.73 sqM); Potassium 4.7 mmol/L (3.5-5.1); Sodium 135 mmol/L (137-145)
[2019-10-19 07:51] VITALS: BP 164/81; PULSE 81
[2019-10-19] MEDS: LOSARTAN 50 MG TAB PO SCH (07:57)
[2019-10-19] MEDS: ASPIRIN 81 MG PO SCH (07:57)
[2019-10-19] MEDS: APIXABAN 5 MG TAB PO SCH (07:57)
[2019-10-19] MEDS: IPRATROPIUM-ALBUTEROL 3 ML NEB INHALATION SCH ×2 (08:30→11:28)
[2019-10-19 08:49] LABS: Cholesterol 181 mg/dL (<200); HDL Cholesterol 89 mg/dL (40-60); LDL Cholesterol,Calculated 81 mg/dL (0-99); Triglycerides 56 mg/dL (<150)
--- NOTE | 2019-10-19 09:55 | P.PN ---
Subjective This is a pleasant 73-year-old male past medical history significant for paroxysmal atrial fibrillation maintained on long-term anticoagulation, sick sinus syndrome status post pacemaker implantation, COPD, TIA and hypertension. He follows in the office with Dr. Weber. He is seen and examined sitting up in bed in no acute distress. He denies further symptoms of chest discomfort. He has no shortness of breath, dizziness or palpitations. Blood pressure 164/81 heart rate 81 afebrile maintaining oxygen saturation on room air. Laboratory data reviewed, WBC 8.2, hemoglobin 13.2, platelets 135, sodium 4.7, creatinine 0.94. Currently maintained on Toprol 50 mg daily, losartan 50 mg daily, aspirin 81 mg daily and Eliquis 5 mg twice a day. Most recent echocardiogram obtained July 2019 revealed mildly impaired LV systolic function with ejection fraction 45-50%, mild MR, mild TR and mild pulmonary hypertension with an RVSP of 41 m mHg. GENERAL: Well-appearing, well-nourished and in no acute distress. NECK: Supple without JVD or thyromegaly. LUNGS: Breath sounds clear to auscultation bilaterally. Respiration equal and unlabored. No wheezes, rales or rhonchi. HEART: Regular rate and rhythm without murmurs, rubs or gallops. S1 and S2 heard. EXTREMITIES: Normal range of motion, no edema. No clubbing or cyanosis. Peripheral pulses intact. ASSESSMENT Chest pain, atypical. An acute coronary event has been ruled out Hypertension Paroxysmal atrial fibrillation on long-term anticoagulation. Currently maintaining sinus mechanism 6 sinus syndrome status post permanent pacemaker implantation PLAN Check lipid panel. Proceed with dobutamine stress echo to assess for stress induced ischemia. If normal, he can be discharged from a cardiac perspective to follow up with Dr. Weber. Nurse Practitioner note has been reviewed, I agree with a documented findings and plan of care. Patient was seen and examined. Objective - Vital Signs Vital signs: Vital Signs Temp 97.6 F 10/19/19 02:37 Pulse 81 10/19/19 07:49 Resp 18 10/19/19 07:49 BP 164/81 10/19/19 07:49 Pulse Ox 97 10/19/19 07:49 Intake & Output 10/18/19 10/19/19 10/19/19 18:59 06:59 18:59 Intake Total 1620 Output Total 425 Balance 1195 Intake: Oral 1620 Output: Urine 425 Other: # Voids 2 - Labs CBC & Chem 7: 10/19/19 05:31 10/19/19 05:31 Labs: Abnormal Lab Results - Last 24 Hours (Table) 10/19/19 10/19/19 10/19/19 Range/Units 05:31 05:31 05:31 RBC 4.21 L (4.30-5.90) m/uL Sodium 135 L (137-145) mmol/L BUN 30 H (9-20) mg/dL Glucose 107 H (74-99) mg/dL HDL Cholesterol 89 H (40-60) mg/dL
[2019-10-19] MEDS: predniSONE 20 MG TAB PO SCH (10:10)
[2019-10-19] MEDS: BICALUTAMIDE 50 MG TAB PO SCH (10:10)
[2019-10-19] MEDS: METOPROLOL SUCCINATE (ER) 50 MG TAB.ER.24H PO SCH (10:10)
--- NOTE | 2019-10-19 11:18 | ECHOS ---
STRESS ECHOCARDIOGRAM LUMASON: Vial INDICATIONS: Chest pain MEDICATIONS: BASELINE HEART RATE: 61 BASELINE BLOOD PRESSURE: 133/78 MAXIMUM HEART RATE: 109 MAXIMUM BLOOD PRESSURE: 164/93 85% MPHR: 126 100% MPHR: 148 METS: MAXIMUM STAGE REACHED: TOTAL EXERCISE TIME: CLINICAL INFORMATION: Baseline EKG revealed a sinus mechanism with inferolateral ST abnormality which could represent LVH with repolarization. There was a lot of baseline artifact and some isolated PVCs. With the dobutamine administration, heart rate went up to 109 beats per minute with isolated PVCs and this is considered inconclusive given the heart rate response being inadequate. This is therefore by EKG criteria and inconclusive dobutamine stress test. There was evidence of variable RR interval without P waves, but there was a lot of artifact. Possibility of intermittent atrial fibrillation should be considered. However, by EKG criteria, this is an inconclusive dobutamine stress test because of resting EKG changes and inadequate chronotropic response. Baseline echo images revealed normal wall motion and wall thickening of all segments. At peak administration of both dobutamine and atropine, maximal heart rate was 109 beats per minute and there was no evidence of ischemia. There was good augmentation of left ventricular wall motion and wall thickening of all segments, but given the fact his heart rate was suboptimal, this is an inconclusive dobutamine echo. FINAL IMPRESSION: 1. Inconclusive dobutamine stress test because of inadequate chronotropic response and resting EKG changes. 2. Inconclusive dobutamine echo because of resting because of inadequate chronotropic response. MMODL / IJN: [id number] /
--- NOTE | 2019-10-19 12:09 | P.DS ---
Providers Date of admission: 10/16/19 21:42 Expected date of discharge: 10/19/19 Attending physician: Saleem Cantu Consults: 10/16/19 22:01 Consult Physician Routine Consulting Provider: Yogesh Weber Consult Reason/Comments: CP Do you want consulting provider notified?: Yes Primary care physician: [facility] Course: 73-year-old male past medical history significant for paroxysmal atrial fibrillation maintained on long-term anticoagulation, sick sinus syndrome status post pacemaker implantation, COPD, TIA and hypertension. He follows in the office with Dr. Weber. He is seen and examined sitting up in bed in no acute distress. He denies further symptoms of chest discomfort. He has no shortness of breath, dizziness or palpitations. Blood pressure 164/81 heart rate 81 afebrile maintaining oxygen saturation on room air. Laboratory data reviewed, WBC 8.2, hemoglobin 13.2, platelets 135, sodium 4.7, creatinine 0.94. Currently maintained on Toprol 50 mg daily, losartan 50 mg daily, aspirin 81 mg daily and Eliquis 5 mg twice a day. Most recent echocardiogram obtained July 2019 revealed mildly impaired LV systolic function with ejection fraction 45-50%, mild MR, mild TR and mild pulmonary hypertension with an RVSP of 41 mmHg. 10/18/2019 Patient is seen and evaluated ambulating in the room; denies any chest shortness of breath at this time Patient is scheduled for stress echocardiogram in the morning; patient was started on losartan for uncontrolled hypertension which she's tolerating well; cardiology recommending to start on Lipitor 10 mg daily Further recommendations pending stress test results 10/19/2019; stress test came back nonconclusive; patient is evaluated by cardiology and is cleared for discharge Patient Condition at Discharge: Stable Plan - Discharge Summary Discharge Rx Participant: No New Discharge Prescriptions: New Losartan [Cozaar] 50 mg PO DAILY #30 tab predniSONE See Taper PO DIRECTED #21 tab Continue Tiotropium 18 Mcg/Puff [Spiriva] 1 cap INHALATION RT-DAILY Budesonide/Formoterol Fumarate [Symbicort 80-4.5 Mcg Inhaler] 2 puff INHALATION RT-BID Albuterol Nebulized [Ventolin Nebulized] 2.5 mg INHALATION RT-Q4H PRN PRN Reason: Shortness Of Breath Aspirin 81 mg PO DAILY 30 Days #30 chew Apixaban [Eliquis] 5 mg PO BID 30 Days #60 tab Bicalutamide [Casodex] 50 mg PO DAILY Albuterol Inhaler [Ventolin Hfa Inhaler] 2 puff INHALATION RT-Q4H PRN PRN Reason: Shortness Of Breath Metoprolol Succinate [Toprol XL] 50 mg PO DAILY #90 tab Furosemide [Lasix] 20 mg PO BID PRN PRN Reason: Edema Prednisolone Acetate/Pf [Prednisolone Acet 1% Eye Drop] 1 drop LEFT EYE DIRECTED Cholecalciferol [Vitamin D3 (25 Mcg = 1000 Iu)] 1,000 unit PO DAILY Ascorbic Acid [Vitamin C] 500 mg PO DAILY Discharge Medication List Tiotropium 18 Mcg/Puff [Spiriva] 1 cap INHALATION RT-DAILY 12/11/17 [History] Albuterol Nebulized [Ventolin Nebulized] 2.5 mg INHALATION RT-Q4H PRN 05/19/19 [History] Budesonide/Formoterol Fumarate [Symbicort 80-4.5 Mcg Inhaler] 2 puff INHALATION RT-BID 05/19/19 [History] Apixaban [Eliquis] 5 mg PO BID 30 Days #60 tab 05/21/19 [Rx] Aspirin 81 mg PO DAILY 30 Days #30 chew 05/21/19 [Rx] Albuterol Inhaler [Ventolin Hfa Inhaler] 2 puff INHALATION RT-Q4H PRN 07/28/19 [History] Bicalutamide [Casodex] 50 mg PO DAILY 07/28/19 [History] Metoprolol Succinate [Toprol XL] 50 mg PO DAILY #90 tab 08/03/19 [Rx] Ascorbic Acid [Vitamin C] 500 mg PO DAILY 10/17/19 [History] Cholecalciferol [Vitamin D3 (25 Mcg = 1000 Iu)] 1,000 unit PO DAILY 10/17/19 [History] Furosemide [Lasix] 20 mg PO BID PRN 10/17/19 [History] Prednisolone Acetate/Pf [Prednisolone Acet 1% Eye Drop] 1 drop LEFT EYE DIRECTED 10/17/19 [History] Losartan [Cozaar] 50 mg PO DAILY #30 tab 10/19/19 [Rx] predniSONE See Taper PO DIRECTED #21 tab 10/19/19 [Rx] Follow up Appointment(s)/Referral(s): Yogesh Weber MD [STAFF PHYSICIAN] - 2 Weeks [facility] [Primary Care Provider] - 1-2 days Discharge Disposition: HOME SELF-CARE
== END 2019-10-19 13:17 | disposition home or self-care (01) ==
LOC: EC 20:00 → 3NCARDOBS 21:42
PROVIDERS: ADMIT Hospitalist; ATTEND Hospitalist
DX: R07.89 Other chest pain (principal); I10 Essential (primary) hypertension; E78.5 Hyperlipidemia, unspecified; J44.9 Chronic obstructive pulmonary disease, unspecified; I49.5 Sick sinus syndrome; I48.19 Other persistent atrial fibrillation; R60.0 Localized edema; H54.61 Unqualified visual loss, right eye, normal vision left eye; Z79.51 Long term (current) use of inhaled steroids; Z79.899 Other long term (current) drug therapy; Z86.73 Personal history of transient ischemic attack (TIA), and cerebral infarction without residual deficits; Z95.0 Presence of cardiac pacemaker; Z87.891 Personal history of nicotine dependence; Z79.01 Long term (current) use of anticoagulants; Z79.82 Long term (current) use of aspirin; E66.9 Obesity, unspecified; Z68.36 Body mass index [BMI] 36.0-36.9, adult; Z20.828 Contact with and (suspected) exposure to other viral communicable diseases
CPT/HCPCS: 96374; 99285; 36415; 94640 ×3; 93005; 83880; 80061; 80053; 80048; 83735; 84484 ×2; 85025 ×2; 85610; 85730; 71046; G0378 ×4; C8930; U0003; J1250; J1100; J0461; J7512 ×3; Q9950; 93351

== ENCOUNTER → 2019-12-23 | Outpatient (CLI) | payer MEDICARE | END | disposition home or self-care (01) | LOC: LABWHC1 15:54 | PROVIDERS: ATTEND Radiology Radiation Oncology | DX: C61 Malignant neoplasm of prostate (principal); Z79.818 Long term (current) use of other agents affecting estrogen receptors and estrogen levels; Z87.891 Personal history of nicotine dependence | CPT/HCPCS: 36415; 84153 ==

== ENCOUNTER → 2020-03-03 | Outpatient (CLI) | payer OTHER ==
--- NOTE | 2020-03-03 14:32 | CT ---
EXAMINATION TYPE: CT chest w con DATE OF EXAM: 03/03/2020 COMPARISON: Chest x-ray January 15, 2020 HISTORY: Cough. CT DLP: 599.4 mGycm. Automated Exposure Control for Dose Reduction was Utilized. TECHNIQUE: CT scan of the thorax is performed following with IV Contrast, patient injected with 100 mL of Isovue M300. FINDINGS: LUNGS: Mild to moderate underlying emphysematous change is present. Slightly elevated left hemidiaphr agm. Mild left basilar linear scarring and/or atelectasis. No suspicious nodules or masses. No pleura l effusion or pneumothorax is seen bilaterally. MEDIASTINUM: There are no greater than 1 cm hilar or mediastinal lymph nodes. No pericardial effusi on is seen. Multi lead right-sided pacemaker device. Mild cardiomegaly. Moderate biatrial dilatation . Mild to moderate left ventricular dilatation. Mild to moderate coronary artery calcification. Heart size upper limits of normal. OTHER: The spine is straightened. Moderate to severe multilevel spurring is seen. IMPRESSION: Mild cardiomegaly. Mild to moderate underlying emphysematous change. No suspicious acute pulmonary process.
== END | disposition home or self-care (01) ==
LOC: RADCTMAIN 13:14
PROVIDERS: ATTEND Internal Medicine
DX: R05 Cough (principal); J43.9 Emphysema, unspecified; I51.7 Cardiomegaly
CPT/HCPCS: 82565; 84520; 71260; 36415; Q9967

== ENCOUNTER → 2020-12-09 | Outpatient (CLI) | payer MEDICARE ==
[2020-12-10 07:22] LABS: Prostate Specific Antigen 0.2 ng/mL (0.0-6.5)
== END | disposition home or self-care (01) ==
LOC: LABWHC1 14:02
PROVIDERS: ATTEND Urology
DX: C61 Malignant neoplasm of prostate (principal); Z92.3 Personal history of irradiation; Z79.818 Long term (current) use of other agents affecting estrogen receptors and estrogen levels; Z87.891 Personal history of nicotine dependence
CPT/HCPCS: 36415; 84153; 84403

== ENCOUNTER → 2021-07-27 | Outpatient (CLI) | payer OTHER ==
--- NOTE | 2021-07-27 16:17 | CT ---
EXAMINATION TYPE: CT abdomen pelvis wo/w con DATE OF EXAM: 07/27/2021 COMPARISON: 03/03/2020 HISTORY: Prostate ca CT DLP: 4135.10 mGycm CONTRAST: CT scan of the abdomen and pelvis is performed with Oral Contrast and without and with IV Contrast, p atient injected with 100 mL of Isovue 300. FINDINGS: LUNG BASES-: No visible nodule. No infiltrate. LIVER/GB: No calcified gallstones. No space occupying hepatic lesion. Biliary tree is of normal ca liber. PANCREAS: No inflammation. No distinct mass. SPLEEN: No splenic enlargement. No lesion seen. ADRENALS: No nodule. No thickening. KIDNEYS/BLADDER: No hydronephrosis. No nephrolithiasis. Renal cystic changes noted. No solid renal masses noted. Urinary bladder grossly unremarkable. BOWEL: Normal appendix. Normal bowel caliber. No inflammation. GENITAL ORGANS: No gross abnormality. LYMPH NODES: No greater than 1cm abdominal or pelvic lymph nodes are appreciated. AORTA: No significant abnormality. OSSEOUS STRUCTURES: Degenerative changes lumbar spine. OTHER: Fat-containing umbilical hernia. IMPRESSION: 1. No evidence for metastatic disease within the abdomen or pelvis. 2. Renal cystic changes. 3. Degenerative change lumbar spine.
== END | disposition home or self-care (01) ==
LOC: RADCTMAIN 13:32
PROVIDERS: ATTEND Radiology Radiation Oncology
DX: C61 Malignant neoplasm of prostate (principal)
CPT/HCPCS: 82565; 84520; 74178; 36415; Q9967